=== PATIENT | female | born 1970 | race Hispanic/Latino ===

== ENCOUNTER 2018-02-16 12:24 | Inpatient (IN) | payer BC ==
--- NOTE | 2018-02-16 12:27 | ED PDOC ---
Arrival/HPI - General Chief Complaint: Altered Mental Status Time Seen by Provider: 02/16/18 12:26 Historian: Patient, EMS - History of Present Illness Narrative History of Present Illness (Text): 02/16/18 12:33 47 year old female, who is brought in to the emergency department via EMS from PMD's office s/p noting slurred speech, right hand/arm weakness and right sided face numbness at around 09:00 AM. pt states she awoke around 6-7am and was at her baseline mental status, no new changes and was at work when she began to feel unwell; pt states no fever/chills/sweats, no cp/sob/palpitations, no abd pain, no n/v, no urinary/bowel changes, no vision changes, no neck pain, no fall /trauma/sick contact, no optic fibre drawer is here for further eval pt's without other complaints. Patient is left handed dominant. PCP: DR TONY pt with hx of uterine Cancer - in remission pt is on medications for HTN, migraines Time/Duration: 4-6 hours Symptom Onset: Sudden Symptom Course: Unchanged Activities at Onset: Rest Context: Work, Other (pt arrived from [facility]) Past Medical History - Provider Review Nursing Documentation Reviewed: Yes - Travel History Have you recently traveled outside [place] w/in the past 3 mons?: No - Past History Past History: No Previous - Infectious Disease Hx of Infectious Diseases: None - Reproductive Menopause: No Currently : Unknown Family/Social History - Physician Review Nursing Documentation Reviewed: Yes Family/Social History: Unknown Family HX Smoking Status: Unknown If Ever Smoked Hx Alcohol Use: No Hx Substance Use: No Allergies/Home Meds Allergies/Adverse Reactions: Allergies Penicillins Allergy (Verified 02/16/18 13:02) ANAPHYLAXIS Home Medications: Home Meds Medication Instructions Recorded Confirmed Unobtainable 02/16/18 02/16/18 Review of Systems - Review of Systems Constitutional: Normal Eyes: Normal ENT: Normal Respiratory: Normal Cardiovascular: Normal Gastrointestinal: Normal Genitourinary Female: Normal Musculoskeletal: Normal Skin: Normal Neurological: Speech Changes, Other (right arm weakness, right facial numbness) . absent: Headache Endocrine: Normal Hemo/Lymphatic: Normal Psychiatric: Normal Physical Exam Vital Signs Reviewed: Yes Vital Signs Temp Pulse Resp BP Pulse Ox 02/16/18 13:00 98.1 F 78 18 135/80 100 02/16/18 12:45 80 16 136/85 98 02/16/18 12:28 83 18 132/81 100 Temperature: Afebrile Blood Pressure: Normal Pulse: Regular Respiratory Rate: Normal Appearance: Positive for: Well-Appearing, Non-Toxic, Uncomfortable, Other ( resting in bed, uncomfortable, cooperative, alert/awake, GCS = 15, oriented x 3 , follows command) Pain Distress: None Mental Status: Positive for: other (+ slurr speech, alert/awake, oriented x 3, uncomfortable) - Systems Exam Head: Present: Atraumatic, Normocephalic Pupils: Present: PERRL, Other (visual field intact b/l, no nystagmus, no photophobia, sclera anicteric) Extroacular Muscles: Present: EOMI Conjunctiva: Present: Normal Ears: Present: Normal Mouth: Present: Moist Mucous Membranes, Normal Teeth, Other (uvula/tongue are midline, no exudate/lesions, no drooling/stridor, no dysphonia, intact dentitions) Pharnyx: Present: Normal Nose (External): Present: Atraumatic Nose (Internal): Present: Normal Inspection Neck: Present: Normal Range of Motion, Trachea Midline, Other (no midline tenderness, no step off, no meningeal signs, no nuchal rigidity). No: Meningeal Signs, MIDLINE TENDERNESS Respiratory/Chest: Present: Clear to Auscultation, Good Air Exchange, Other ( CTA b/l, no w/r/r, no tachypenia). No: Respiratory Distress, Accessory Muscle Use Cardiovascular: Present: Regular Rate and Rhythm, Normal S1, S2. No: Murmurs Abdomen: Present: Normal Bowel Sounds, Other (well nourished female, no focal tenderness, no masses/rebound/guarding/rigidity, no fields's sign, no mcburney' s point tenderness) Back: Present: Normal Inspection. No: CVA Tenderness, Midline Tenderness Upper Extremity: Present: Normal Inspection, Normal ROM, NORMAL PULSES, Neurovascularly Intact, Other (right hand grasp: weak, +4/5; + slight prontor drift right arm; intact ROM; strength 5/5 left arm, neurovasc intact b/l, no gross deformities). No: Edema Lower Extremity: Present: Normal Inspection, NORMAL PULSES, Normal ROM, Neurovascularly Intact, Capillary Refill < 2 s, Other (strength 5/5 grossly intact in all limbs, neurovasc intact b/l, intact ROM). No: CALF TENDERNESS Neurological: Present: GCS=15, Other (faint right facial asymmetries noted right victor hugo-oral, + right facial sensation changes; + slurr speech, NIH stroke scale ~ 4-5). No: Speech Normal Skin: Present: Warm, Normal Color, Other (cap refill < 1sec, no ulcerations, no petechiae, no rashes). No: Rashes Psychiatric: Present: Alert Medical Decision Making ED Course and Treatment: 02/16/18 Impression: facial numbness, slurr speech, right hand weakness - r/o CVA Differential Diagnosis included but are not limited to: R/O CVA Plan: -- code stroke -- labs, iv, ct, xray -- Reassess and disposition Progress Notes: 02/16/2018 CODE STROKE CALLED AT 12:23 PM - immediately upon pt's ED arrival 02/16/18 13:10 Upon re-evaluation, patient shows persistent stroke symptoms. Left message to Dr. James regarding patient's status. 02/16/18 13:21 Dr. James evaluated patient at bed side and suggests patient is NOT a candidate for tPA due to time of onset of symptoms (9am) and apparent improvement of patient's conditions currently. Will administer 325 mg of aspirin and 75 mg of Plavix as per Dr. James's recommendation. Will admit patient for further observation. I spoke to pt's daughter over the phone, Jina, and states she is coming to the ED to see her mother; she confirm that her mother is on Propanolol, excedrine and another medication 02/16/18 13:33 paging PCP process controls technician, Dr Nelson, no reply, will continue to reach out 02/16/18 14:[address] Nelson who agrees with patient to be admitted and would like to consult ICU for possible placement in the ICU for stroke like symptoms. 02/16/18 14:[address] Duarte who is made aware and agrees to evaluate patient at bedside. 02/16/18 14:55 repeat bedside neurologic evaluation indicates improving speech and increasing strength to right hand gripe, pt states her speech seems to be slightly easier as well, pt's symptoms seems to be improving ICU contacted, will see patient, states if negative MRI, pt can be downgraded to tele placement instead of ICU placement pt/family are made aware of pt's medical results agrees with admission Re-evaluation Time: 13:20 Reassessment Condition: Improving,but remains with symptoms - Critical Care Critical Care Minutes: 45 minutes Critical Care Time: Excluding Proc Time Narrative Critical Care (Text): 02/16/18 13:45 critical care time: 45min, excluding procedure time, excluding time teaching residents/students/mid-level providers; including initial eval/diagnosis, diagnostic interpretation, re-eval, consultations, final disposition - Lab Interpretations Lab Results: 02/16/18 12:52 02/16/18 12:52 Lab Results 02/16/18 12:52: Blood Type A POSITIVE, Antibody Screen Negative, BBK History Checked No verified bt 02/16/18 12:52: Sodium 138, Potassium 3.7, Chloride 102, Carbon Dioxide 21, Anion Gap 18, BUN 12, Creatinine 0.8, Est GFR ( Amer) > 60, Est GFR (Non- Af Amer) > 60, Random Glucose 91, Calcium 9.2, Total Bilirubin 0.3, AST 33, ALT 60 H, Alkaline Phosphatase 157 H, Troponin I < 0.01, NT-Pro-B Natriuret Pep 47.1 , Total Protein 6.7, Albumin 4.2, Globulin 2.5, Albumin/Globulin Ratio 1.7, Triglycerides 160, Cholesterol 260 H, LDL Cholesterol Direct 168 H, HDL Cholesterol 48 02/16/18 12:52: PT 11.9, INR 1.03, APTT 28.5 02/16/18 12:52: WBC 8.5, RBC 4.73, Hgb 13.3, Hct 40.0, MCV 84.6, MCH 28.1, MCHC 33.3, RDW 13.9, Plt Count 328, MPV 9.6, Gran % 54.3, Lymph % (Auto) 36.1 H, [place] % (Auto) 5.5, Eos % (Auto) 3.4, Baso % (Auto) 0.7, Gran # 4.59, Lymph # ( Auto) 3.1, [place] # (Auto) 0.5, Eos # (Auto) 0.3, Baso # (Auto) 0.06 I have reviewed the lab results: Yes (elevated CHOL) Interpretation: Abnormal lab values - RAD Interpretation Narrative RAD Interpretations (Text): 02/16/18 13:47 CTA HEAD AND NECK WITH CONTRAST FINDINGS: HEAD: Right: The intracranial internal carotid artery, and anterior and middle cerebral arteries are widely patent. There is early bifurcation of the M1 segment. Left: The intracranial internal carotid artery, and anterior and middle cerebral arteries are widely patent. The A1 segment is hypoplastic, an anatomic variant. Posterior circulation: The visualized intracranial vertebral arteries, basilar artery and posterior cerebral arteries are widely patent. Ther is no endoluminal filling defect to suggest thrombus. There is no intracranial saccular aneurysm. There is no abnormal enhancement on the postcontrast CT. NECK: There is a four vessel aortic arch with the left vertebral artery arising from the aortic arch. There is no stenosis at the origins of the great vessels at the level of the aortic arch. Right Carotid: On the right, the common carotid, internal carotid and external carotid arteries are widely patent. There is no hemodynamically significant stenosis in the internal carotid artery by NASCET criteria. Left Carotid: On the left, the common carotid, internal carotid and external carotid arteries are widely patent.There is no hemodynamically significant stenosis in the internal carotid artery by NASCET criteria. The vertebral arteries are widely patent. The left vertebral artery is hypoplastic, an anatomic variant. The visualized soft tissues of the neck are normal. The visualized brain and cervical spine are within normal limits. The lung apices are clear. There is a multinodular thyroid gland. IMPRESSION: 1. No evidence of endoluminal thrombus, definite significant stenosis or occlusion. 2. No evidence of hemodynamically significant stenosis in the internal carotid arteries by NASCET criteria P 02/16/18 13:48 CT HEAD WITHOUT CONTRAST. FINDINGS: HEMORRHAGE:No intracranial hemorrhage. BRAIN:Nix-white matter differentiation is preserved. There is no mass, mass effect or abnormal extra-axial collection. There is no territorial infarction. VENTRICLES:The ventricles are normal in size, shape and configuration. CALVARIUM:The skull base and calvarium are normal. PARANASAL SINUSES:There is mucosal thickening and aerosolized secretions in the left posterior ethmoid air cells. The remaining included paranasal sinuses are predominantly clear. MASTOID AIR CELLS:Predominantly clear. OTHER FINDINGS:None. IMPRESSION:No acute intracranial abnormality. If there is a persistent focal neurologic deficit and an ongoing clinical concern for acute infarction, an MRI of the brain without intravenous contrast would be a more sensitive modality for evaluation of hyperacute/acute ischemic infarction. Important findings were discussed with Dr. Juan Cisneros in the ER on 02/16/2018 at 12:45 p.m. Chest X-ray: COMPARISON: 12/26/2013 FINDINGS: LUNGS:No active pulmonary disease. PLEURA:No significant pleural effusion identified, no pneumothorax apparent. CARDIOVASCULAR:Normal. OSSEOUS STRUCTURES:No significant abnormalities. VISUALIZED UPPER ABDOMEN:Normal. OTHER FINDINGS:None. IMPRESSION: No active disease. No significant interval change compared to the prior examination(s). 02/16/18 15:02 This report is currently processing and HAS NOT BEEN OFFICIALLY SIGNED BY THE PHYSICIAN - ESTIMATED TIME OF APPROVAL IS 02/16/2018 15:05. PROCEDURE: MRI BRAIN WITHOUT CONTRAST HISTORY: Code Stroke COMPARISON: None. TECHNIQUE: Multiplanar, multisequence MR images of the brain were obtained without intravenous contrast enhancement. FINDINGS: HEMORRHAGE: None DWI: No evidence of an acute or early subacute infarction. BRAIN PARENCHYMA: There is a solitary T2/FLAIR hyperintense focus in the left parietal subcortical white matter. There is no mass, mass effect or abnormal extra- axial fluid collection. The midline sagittal structures are normal. VENTRICLES: The ventricles are normal in size, shape and configuration. CRANIUM: There is normal bone marrow signal pattern. ORBITS: Grossly unremarkable. PARANASAL SINUSES/MASTOIDS: There is mild mucosal thickening in the right posterior ethmoid air cells. The remaining included paranasal sinuses are predominantly clear. VASCULAR SYSTEM: There are normal signal voids in the larger intracranial arteries. OTHER FINDINGS: None. IMPRESSION: No acute intracranial abnormality. Specifically, no evidence for acute infarction or demyelination. Solitary focal left parietal subcortical white matter abnormalities strictly nonspecific and could represent gliosis, migraine headache effect or early chronic microangiopathic change. Radiology Orders: 02/16/18 12:28 CTA HEAD/NECK CODE STROKE [CT] Stat HEAD W/O (CODE STROKE) [CT] Stat CHEST PORTABLE [RAD] Stat 02/16/18 13:32 BRAIN WITHOUT CONTRAST [MRI] Stat Food Clerk: Radiologist - EKG Interpretation EKG Interpretation (Text): 02/16/18 13:49 NSR at 80 bpm, RAD, no ectopy, non-specific T wave abnl, no st changes, ABNL EKG ; no old ekg to compare with Interpreted by ED Physician: Yes Type: 12 lead EKG Comparison: No previous EKG avail. - Medication Orders Current Medication Orders: Sodium Chloride (Sodium Chloride 0.9%) 1,000 mls @ 100 mls/hr IV .Q10H BRENDA Last Admin: 02/16/18 13:13 Dose: 100 mls/hr eMAR Start Stop Document 02/16/18 13:13 EWO (Rec: 02/16/18 13:13 EWO [id number]) Intravenous Solution Start Date 02/16/18 Start Time 13:13 Discontinued Medications Aspirin (Aspirin Supp) 300 mg RC STAT STA Stop: 02/16/18 13:46 Clopidogrel Bisulfate (Plavix) 75 mg PO STAT STA Stop: 02/16/18 13:27 NIHSS Stroke Scale 3 - Date/Time Evaluation Performed Date Performed: 02/16/18 Time Performed: 12:23 When Was NIHSS Performed: Code Stroke - How Severe is the Stroke Level of Consciousness: 0=Alert LOC to Questions: 0=Both comments correct LOC to commands: 0=Obeys both correctly Best Gaze: 0=Normal Visual: 0=No visual loss Facial: 1=Minor asymmetry Motor Arm - Left: 0=No drift Motor Arm - Right: 1=Drift noted before 10 sec Motor Leg - Left: 0=No drift Motor Leg - Right: 0=No drift Limb Ataxia: 0=Absent Sensory: 0=Normal Best Language: 2=Severe aphasia Dysarthia: 0=Normal articulation Extinction & Inattention (Neglect): 0=Normal, no object Score: 4 Severity Of Stroke: 1-4 = Minor Stroke - Scribe Statement The provider has reviewed the documentation as recorded by the José Ortez Provider Scribe Attestation: All medical record entries made by the José were at my direction and personally dictated by me. I have reviewed the chart and agree that the record accurately reflects my personal performance of the history, physical exam, medical decision making, and the department course for this patient. I have also personally directed, reviewed, and agree with the discharge instructions and disposition. Disposition/Present on Arrival - Present on Arrival Any Indicators Present on Arrival: No History of DVT/PE: No History of Uncontrolled Diabetes: No Urinary Catheter: No History of Decub. Ulcer: No History Surgical Site Infection Following: None - Disposition Have Diagnosis and Disposition been Completed?: Yes Diagnosis: TIA (transient ischemic attack), Slurred speech, Arm weakness Disposition: HOSPITALIZED Disposition Time: 14:30 Patient Plan: Admission, Telemetry Patient Problems: Current Active Problems Problem Status Onset Arm weakness Acute Slurred speech Acute TIA (transient ischemic attack) Acute Condition: STABLE Print Language: GAMBIAN Forms: [employer] (Divehi)
[2018-02-16] MEDS ORDERED: Iohexol 350 MG/100 ML VIAL ONE (12:37)
--- NOTE | 2018-02-16 12:51 | CT ---
PROCEDURE: CT HEAD WITHOUT CONTRAST. HISTORY: Code Stroke COMPARISON: None available. TECHNIQUE: Axial computed tomography images were obtained through the head/brain without intravenous contrast. Radiation dose: Total exam DLP = 797.46 mGy-cm. This CT exam was performed using one or more of the following dose reduction techniques: Automated exposure control, adjustment of the mA and/or kV according to patient size, and/or use of iterative reconstruction technique. FINDINGS: HEMORRHAGE: No intracranial hemorrhage. BRAIN: Nix-white matter differentiation is preserved. There is no mass, mass effect or abnormal extra-axial collection. There is no territorial infarction. VENTRICLES: The ventricles are normal in size, shape and configuration. CALVARIUM: The skull base and calvarium are normal. PARANASAL SINUSES: There is mucosal thickening and aerosolized secretions in the left posterior ethmoid air cells. The remaining included paranasal sinuses are predominantly clear. MASTOID AIR CELLS: Predominantly clear. OTHER FINDINGS: None. IMPRESSION: No acute intracranial abnormality. If there is a persistent focal neurologic deficit and an ongoing clinical concern for acute infarction, an MRI of the brain without intravenous contrast would be a more sensitive modality for evaluation of hyperacute/acute ischemic infarction. Important findings were discussed with Dr. Juan Cisneros in the ER on 02/16/2018 at 12:45 p.m.
--- NOTE | 2018-02-16 13:07 | CT ---
PROCEDURE: CTA HEAD AND NECK WITH CONTRAST HISTORY: slurr speech, right facial weak, right arm weak COMPARISON: None available. TECHNIQUE: Initial noncontrast head CT was performed. Subsequently, CT angiogram of the head and neck were performed after the intravenous administration of 80 mL of Omnipaque 350. Contiguous 1.5mm thick images were obtained in the axial plane of the neck. 2-D coronal and sagittal MPR images were obtained. Imaging postprocessing was performed with 3-D images also obtained. A delayed contrast head CT was also obtained. This CT exam was performed using one or more of the following dose reduction techniques: Automated exposure control, adjustment of the mA and/or kV according to patient size, and/or use of iterative reconstruction technique. Contrast dose: 100 mL Omnipaque 350 Radiation dose: Total exam DLP = 415.49 mGy-cm. FINDINGS: HEAD: Right: The intracranial internal carotid artery, and anterior and middle cerebral arteries are widely patent. There is early bifurcation of the M1 segment. Left: The intracranial internal carotid artery, and anterior and middle cerebral arteries are widely patent. The A1 segment is hypoplastic, an anatomic variant. Posterior circulation: The visualized intracranial vertebral arteries, basilar artery and posterior cerebral arteries are widely patent. Ther is no endoluminal filling defect to suggest thrombus. There is no intracranial saccular aneurysm. There is no abnormal enhancement on the postcontrast CT. NECK: There is a four vessel aortic arch with the left vertebral artery arising from the aortic arch. There is no stenosis at the origins of the great vessels at the level of the aortic arch. Right Carotid: On the right, the common carotid, internal carotid and external carotid arteries are widely patent. There is no hemodynamically significant stenosis in the internal carotid artery by NASCET criteria. Left Carotid: On the left, the common carotid, internal carotid and external carotid arteries are widely patent. There is no hemodynamically significant stenosis in the internal carotid artery by NASCET criteria. The vertebral arteries are widely patent. The left vertebral artery is hypoplastic, an anatomic variant. The visualized soft tissues of the neck are normal. The visualized brain and cervical spine are within normal limits. The lung apices are clear. There is a multinodular thyroid gland. IMPRESSION: 1. No evidence of endoluminal thrombus, definite significant stenosis or occlusion. 2. No evidence of hemodynamically significant stenosis in the internal carotid arteries by NASCET criteria P
[2018-02-16 13:12] LABS: BASO # 0.06 K/mm3 (0.0-2.0); BASO % 0.7 % (0.0-3.0); EOS # 0.3 (0.0-0.7); EOS % 3.4 % (1.5-5.0); GRAN # 4.59 (1.4-6.5); GRAN % 54.3 % (50.0-68.0); HEMOGLOBIN 13.3 g/dL (12.0-16.0); LYMPH # 3.1 (1.2-3.4); LYMPH % 36.1 % (22.0-35.0); MEAN CELL VOLUME 84.6 fl (80.0-105.0); MEAN CORPUSCULAR HEMOGLOBIN 28.1 pg (25.0-35.0); MEAN CORPUSCULAR HGB CONC 33.3 g/dl (31.0-37.0); MEAN PLATELET VOLUME 9.6 fl (7.0-11.0); MONO # 0.5 (0.1-0.6); MONO % 5.5 % (1.0-6.0); RBC 4.73 10^6/uL (3.5-6.1); RED CELL DISTRIBUTION WIDTH 13.9 % (11.5-14.5); WHITE BLOOD COUNT 8.5 10^3/ul (4.5-11.0)
[2018-02-16] MEDS: Sodium Chloride 0.9% 1,000 ML IV SCH ×2 (13:13→19:01)
[2018-02-16 13:22] LABS: ALB/GLOB RATIO 1.7 (1.1-1.8); ALBUMIN 4.2 g/dL (3.0-4.8); ALT/SGPT 60 U/L (7-56); AST/SGOT 33 U/L (14-36); BLOOD UREA NITROGEN 12 mg/dL (7-21); CALCIUM 9.2 mg/dL (8.4-10.5); GFR AFRICAN-AMERICAN > 60; GFR NON-AFRICAN AMERICAN > 60; HDL CHOLESTEROL 48 mg/dL (29-60)
[2018-02-16 13:25] LABS: INR 1.03 (0.93-1.08); PARTIAL THROMBOPLASTIN TIME 28.5 Seconds (25.1-36.5); PROTHROMBIN TIME 11.9 SECONDS (9.4-12.5)
[2018-02-16 13:33] LABS: LDL CHOLESTEROL 168 mg/dL (0-129)
--- NOTE | 2018-02-16 13:33 | RAD ---
HISTORY: Code Stroke COMPARISON: 12/26/2013 FINDINGS: LUNGS: No active pulmonary disease. PLEURA: No significant pleural effusion identified, no pneumothorax apparent. CARDIOVASCULAR: Normal. OSSEOUS STRUCTURES: No significant abnormalities. VISUALIZED UPPER ABDOMEN: Normal. OTHER FINDINGS: None. IMPRESSION: No active disease. No significant interval change compared to the prior examination(s).
[2018-02-16 13:36] LABS: B-TYPE NATRIURETIC PEPTIDE 47.1 pg/mL (0-450); TROPONIN I < 0.01 ng/mL
--- NOTE | 2018-02-16 14:47 | CP.PCM.CON ---
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 She says that this started acutely at 930 am , with no prior spells reported. She denies nausea, vomiting, headache, aphasia or blurriness of vision. She came in as a code stroke and is now being evaluated. PMH/PSH: none reported Fh/SH: no smoking, no tobacco. All: nkda. On exam: AAox3. PERRL. EOMI. Cn 2-12 normal. No facial asymmetry. Speech fluent, no aphasia. motor: right sided weakness at 4/5. left motor is 5/5 right le/5, left leg is 5/5 gait: hemiplegic with right leg weakness. +2 dtr ul and ll bl. toes downgoing no clonus. Past Patient History - Past Social History Smoking Status: Unknown - CARDIAC Hx Hypertension: Yes - NEUROLOGICAL Hx Migraine: Yes - PSYCHIATRIC Hx Substance Use: No - SURGICAL HISTORY Hx Surgeries: No Meds Allergies/Adverse Reactions: Allergies Allergy/AdvReac Type Severity Reaction Status Date / Time Penicillins Allergy ANAPHYLAXIS Verified 02/16/18 13:02 - Medications Medications: Current Medications Sodium Chloride (Sodium Chloride 0.9%) 1,000 mls @ 100 mls/hr IV .Q10H BRENDA Last Admin: 02/16/18 13:13 Dose: 100 mls/hr Results - Vital Signs Recent Vital Signs: Last Vital Signs Temp 98.1 F 02/16/18 13:00 Pulse 78 02/16/18 13:00 Resp 18 02/16/18 13:00 BP 135/80 02/16/18 13:00 Pulse Ox 100 02/16/18 13:00 - Labs Result Diagrams: 02/16/18 12:52 02/16/18 12:52 Labs: Laboratory Results - last 24 hr 02/16/18 02/16/18 02/16/18 12:52 12:52 12:52 WBC 8.5 RBC 4.73 Hgb 13.3 Hct 40.0 MCV 84.6 MCH 28.1 MCHC 33.3 RDW 13.9 Plt Count 328 MPV 9.6 Gran % 54.3 Lymph % (Auto) 36.[address] [place] % (Auto) 5.5 Eos % (Auto) 3.4 Baso % (Auto) 0.7 Gran # 4.59 Lymph # (Auto) 3.1 [place] # (Auto) 0.5 Eos # (Auto) 0.3 Baso # (Auto) 0.06 PT 11.9 INR 1.03 APTT 28.5 Sodium 138 Potassium 3.7 Chloride 102 Carbon Dioxide 21 Anion Gap 18 BUN 12 Creatinine 0.8 Est GFR ( Amer) > 60 Est GFR (Non-Af Amer) > 60 Random Glucose 91 Calcium 9.2 Total Bilirubin 0.3 AST 33 ALT 60 H Alkaline Phosphatase 157 H Troponin I < 0.01 NT-Pro-B Natriuret Pep 47.1 Total Protein 6.7 Albumin 4.2 Globulin 2.5 Albumin/Globulin Ratio 1.7 Triglycerides 160 Cholesterol 260 H LDL Cholesterol Direct 168 H HDL Cholesterol 48 Blood Type Antibody Screen BBK History Checked 02/16/18 12:52 WBC RBC Hgb Hct MCV MCH MCHC RDW Plt Count MPV Gran % Lymph % (Auto) [place] % (Auto) Eos % (Auto) Baso % (Auto) Gran # Lymph # (Auto) [place] # (Auto) Eos # (Auto) Baso # (Auto) PT INR APTT Sodium Potassium Chloride Carbon Dioxide Anion Gap BUN Creatinine Est GFR ( Amer) Est GFR (Non-Af Amer) Random Glucose Calcium Total Bilirubin AST ALT Alkaline Phosphatase Troponin I NT-Pro-B Natriuret Pep Total Protein Albumin Globulin Albumin/Globulin Ratio Triglycerides Cholesterol LDL Cholesterol Direct HDL Cholesterol Blood Type A POSITIVE Antibody Screen Negative BBK History Checked No verified bt - Imaging and Cardiology CT scan - head Status: Image reviewed by me, Report reviewed by me (ct head normal. ) Assessment & Plan - Assessment and Plan (Free Text) Assessment: 47 yr old woman who may have an acute stroke, involving the right internal capsule, ischemic. It may also be functional in nature, but we will obtain MRI brain. Plan; 1. MRI Brain without kamran 2. aspirin and plavix. 3. IF mri is normal, would call psychiatry consult and also pursue tia workup. 4. echo 5. physical therapy. thank you dr. glen md, dpn
--- NOTE | 2018-02-16 15:00 | MRI ---
PROCEDURE: MRI BRAIN WITHOUT CONTRAST HISTORY: Code Stroke COMPARISON: None. TECHNIQUE: Multiplanar, multisequence MR images of the brain were obtained without intravenous contrast enhancement. FINDINGS: HEMORRHAGE: None DWI: No evidence of an acute or early subacute infarction. BRAIN PARENCHYMA: There is a solitary T2/FLAIR hyperintense focus in the left parietal subcortical white matter. There is no mass, mass effect or abnormal extra-axial fluid collection. The midline sagittal structures are normal. VENTRICLES: The ventricles are normal in size, shape and configuration. CRANIUM: There is normal bone marrow signal pattern. ORBITS: Grossly unremarkable. PARANASAL SINUSES/MASTOIDS: There is mild mucosal thickening in the right posterior ethmoid air cells. The remaining included paranasal sinuses are predominantly clear. VASCULAR SYSTEM: There are normal signal voids in the larger intracranial arteries. OTHER FINDINGS: None. IMPRESSION: No acute intracranial abnormality. Specifically, no evidence for acute infarction or demyelination. Solitary focal left parietal subcortical white matter abnormalities strictly nonspecific and could represent gliosis, migraine headache effect or early chronic microangiopathic change.
--- NOTE | 2018-02-16 15:30 | CP.PCM.CON ---
<Azam Valladares - Last Filed: 02/16/18 15:27> History of Present Illness - History of Present Illness History of Present Illness: Consult note for ICU Patient is a 47 year old female with a past history of migraines medicated with propofol who presents to the ED with complaints of right sided facial and upper extremity numbness. 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 Suddenly patient noted her right side of the her face was numb which she likened to the numbness associated with local anesthesia with dental procedures. Patient states this lasted for a few hours. Then patient states the numbness in her right arm also started. Denies any concurrent weakness or tingling with the right side of her face and right upper extremity. She states that currently she feels better than she earlier in the day. Patient denies fevers, chills, nausea, vomiting, diarrhea, migraine, cough , body aches, recent travel, sick contacts, vision changes. Patient during physical exam was demonstrating dysarthria however upon leaving patient asked a question and did not demonstrate dysarthria. Imaging CT Head: no acute intracranial abnormality; no territorial infarction of intracranial hemorrhage. CTA head/neck: intracranial internal carotid artery, and anterior and middle cerebral arteries widely patent. No intracranial saccular aneurysm. Patent left and right carotids. No evidence of endoluminal thrombus, definite significant stenosis, orrr occlusion. No evidence of hemodynamically significant stenosis in the internal carotid arteries. MRI:no acute intracranial abnormality. No evidence for acute infarction or demyelination. Solitary focal left parietal subcortical white matter abnormalities striclty nonspecific and could represent gliosis, migraine headache effect or early microangiopathic change. Review of Systems - Constitutional Constitutional: absent: Chills, Fever - EENT Eyes: absent: Blurred Vision, Change in Vision - Cardiovascular Cardiovascular: absent: Chest Pain, Dyspnea - Respiratory Respiratory: absent: Cough, Dyspnea - Gastrointestinal Gastrointestinal: absent: Diarrhea, Nausea, Vomiting - Genitourinary Genitourinary: absent: Dysuria - Musculoskeletal Musculoskeletal: absent: Arthralgias, Myalgias - Neurological Neurological: absent: Burning Sensations, Confusion, Dizziness, Numbness, Focal Weakness, Headaches, Paresthesias - Psychiatric Psychiatric: absent: Anxiety - Endocrine Endocrine: absent: Fatigue Past Patient History - Infectious Disease Hx of Infectious Diseases: None - Past Social History Smoking Status: Unknown If Ever Smoked - CARDIAC Hx Hypertension: Yes - NEUROLOGICAL Hx Migraine: Yes - PSYCHIATRIC Hx Substance Use: No - SURGICAL HISTORY Hx Surgeries: No Meds Allergies/Adverse Reactions: Allergies Allergy/AdvReac Type Severity Reaction Status Date / Time Penicillins Allergy ANAPHYLAXIS Verified 02/16/18 13:02 - Medications Medications: Current Medications Sodium Chloride (Sodium Chloride 0.9%) 1,000 mls @ 100 mls/hr IV .Q10H BRENDA Last Admin: 02/16/18 13:13 Dose: 100 mls/hr Physical Exam - Head Exam Head Exam: ATRAUMATIC, NORMAL INSPECTION, NORMOCEPHALIC - Eye Exam Eye Exam: EOMI, Normal appearance - ENT Exam ENT Exam: Mucous Membranes Moist, Normal Exam - Respiratory Exam Respiratory Exam: Clear to Auscultation Bilateral, NORMAL BREATHING PATTERN. absent: Rales, Rhonchi, Wheezes - Cardiovascular Exam Cardiovascular Exam: REGULAR RHYTHM, +S1, +S2 - GI/Abdominal Exam GI & Abdominal Exam: Normal Bowel Sounds. absent: Distended, Mass - Back Exam Back exam: NORMAL INSPECTION - Neurological Exam Neurological exam: Alert, CN II-XII Intact, Oriented x3 - Expanded Neurological Exam Expanded Patient oriented to: person, place, time Speech: Slurred Speech Cranial nerves: EOM's Intact: Normal, Facial Palsey w/Forehead Movement: Normal , Facial Palsey w/o Forehead Movement: Normal, Facial Sensation: Normal, Tongue Deviation: Normal Cerebellar Function: Finger to Nose: Normal Sensory exam: Lower Extremity 2 Point Discrimination: Normal, Lower Extremity Pin Prick: Normal, Upper Extremity Light Touch: Normal, Upper Extremity Pin Prick: Normal Neuro motor strength exam: Left Upper Extremity: 3, Right Upper Extremity: 3, Left Lower Extremity: 3, Right Lower Extremity: 3 - Psychiatric Exam Psychiatric exam: Normal Affect, Normal Mood - Skin Skin Exam: Intact, Normal Color, Warm Results - Vital Signs Recent Vital Signs: Last Vital Signs Temp 98.1 F 02/16/18 13:00 Pulse 78 02/16/18 13:00 Resp 18 02/16/18 13:00 BP 135/80 02/16/18 13:00 Pulse Ox 100 02/16/18 13:00 - Labs Result Diagrams: 02/16/18 12:52 02/16/18 12:52 Labs: Laboratory Results - last 24 hr 02/16/18 02/16/18 02/16/18 12:52 12:52 12:52 WBC 8.5 RBC 4.73 Hgb 13.3 Hct 40.0 MCV 84.6 MCH 28.1 MCHC 33.3 RDW 13.9 Plt Count 328 MPV 9.6 Gran % 54.3 Lymph % (Auto) 36.1 H [place] % (Auto) 5.5 Eos % (Auto) 3.4 Baso % (Auto) 0.7 Gran # 4.59 Lymph # (Auto) 3.1 [place] # (Auto) 0.5 Eos # (Auto) 0.3 Baso # (Auto) 0.06 PT 11.9 INR 1.03 APTT 28.5 Sodium 138 Potassium 3.7 Chloride 102 Carbon Dioxide 21 Anion Gap 18 BUN 12 Creatinine 0.8 Est GFR ( Amer) > 60 Est GFR (Non-Af Amer) > 60 Random Glucose 91 Calcium 9.2 Total Bilirubin 0.3 AST 33 ALT 60 H Alkaline Phosphatase 157 H Troponin I < 0.01 NT-Pro-B Natriuret Pep 47.1 Total Protein 6.7 Albumin 4.2 Globulin 2.5 Albumin/Globulin Ratio 1.7 Triglycerides 160 Cholesterol 260 H LDL Cholesterol Direct 168 H HDL Cholesterol 48 Blood Type Antibody Screen BBK History Checked 02/16/18 12:52 WBC RBC Hgb Hct MCV MCH MCHC RDW Plt Count MPV Gran % Lymph % (Auto) [place] % (Auto) Eos % (Auto) Baso % (Auto) Gran # Lymph # (Auto) [place] # (Auto) Eos # (Auto) Baso # (Auto) PT INR APTT Sodium Potassium Chloride Carbon Dioxide Anion Gap BUN Creatinine Est GFR ( Amer) Est GFR (Non-Af Amer) Random Glucose Calcium Total Bilirubin AST ALT Alkaline Phosphatase Troponin I NT-Pro-B Natriuret Pep Total Protein Albumin Globulin Albumin/Globulin Ratio Triglycerides Cholesterol LDL Cholesterol Direct HDL Cholesterol Blood Type A POSITIVE Antibody Screen Negative BBK History Checked No verified bt Assessment & Plan - Assessment and Plan (Free Text) Assessment: 47 F with PMHx of migraines presenting with numbness in right side of face and right upper extremity which has now resolved. Plan: Assessment and Plan -AAO x3 and hemodynamically stable -Neurology consulted; recommends telemetry monitoring -CT head, CTA head and neck, MRI brain findings are not not consistent with physical exam findings -Psychiatry consult recommended <Shayne Bender - Last Filed: 02/16/18 16:21> Meds - Medications Medications: Current Medications Sodium Chloride (Sodium Chloride 0.9%) 1,000 mls @ 100 mls/hr IV .Q10H BRENDA Last Admin: 02/16/18 13:13 Dose: 100 mls/hr Results - Vital Signs Recent Vital Signs: Last Vital Signs Temp 98.1 F 02/16/18 13:00 Pulse 78 02/16/18 13:00 Resp 18 02/16/18 13:00 BP 135/80 02/16/18 13:00 Pulse Ox 100 02/16/18 13:00 - Labs Result Diagrams: 02/16/18 12:52 02/16/18 12:52 Assessment & Plan - Assessment and Plan (Free Text) Plan: Patient seen and examined, agree with residents note with following additions/ exceptions: Patient is 47yo female with PMhx of BZD abuse, migraines presents with acute onset right facial numbness, R sided weakness, which has mostly resolved. CT Brain, CT Angio, MRI Brain negative for acute stroke. Currently AAOx3, NAD, comfortable, NAD, minimal R sided weakness, NOT consistent with radiographic imaging. Recommend: Neuro follow up, Lipid Panel, TSH, HgbA1C, ECHO, tele monitoring.
--- NOTE | 2018-02-16 19:28 | CARD ---
APPROVED REPORT EKG Measurement Heart [id number] <Conclusion> Normal sinus rhythm Rightward axis Nonspecific T wave abnormality Prolonged QT Abnormal ECG
[2018-02-17 00:42] VITALS: BMI 31.0
--- NOTE | 2018-02-17 03:13 | HP ---
DATE OF EXAM: 02/16/2018 HISTORY OF PRESENT ILLNESS: This 47-year-old female was examined at her bedside and this case was reviewed in detail with Dr. Juan Cisneros from the ER, Dr. James from Neurology and Dr. Shayne Bender, brand activation manager. The patient presented to [facility] ER, complaining of right facial and upper extremity numbness. At the time of her presentation she reportedly had slurred speech which was not present when I saw her. Past medical history is significant for history of migraine headache, and patient prior to my evaluation, was seen by emergency room physician and Neurology for concerns of acute stroke for which a code stroke protocol was called. 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 She experienced right-sided face numbness and also reported slurred speech. When I examined this patient, she had neither. Also, she stated that earlier she had a weakness in her right upper extremity, and when examined by Neurology, she was having difficulty with right leg ambulation. Past medical history according to patient is significant for recurrent migraines and she denied any knowledge of hypertension, old stroke, transient ischemic attack, seizure syndrome or multiple sclerosis or neurological defects in her past. While in the emergency room, her CT of the head was reviewed, which showed no acute intracranial abnormality and no evidence of acute intracranial hemorrhage. A CTA of her head and neck was reviewed, which showed widely open and patent intracranial internal carotid arteries as well as anterior and middle cerebral artery patency. There was no evidence of intracranial aneurysm. Both left and right carotids were patent. No thrombus was noted. There was no evidence of any carotid stenosis. MRI of her brain was reviewed, which showed no intracranial abnormality, no evidence of acute infarction, no evidence of demyelination, and there was an area of focal left parietal subcortical white matter finding consistent with possible migraine headache effect. REVIEW OF SYSTEMS: CONSTITUTIONAL: Patient denied fever or chills. HEENT: Head review, denied any active headache and denied any blurred vision. Ear review, denied hearing loss. Throat review, denied swallowing difficulty. NECK: Denied any stiffness. CARDIAC: No chest pain, no shortness of breath, no palpitation. LUNGS: No cough. No hemoptysis. GASTROINTESTINAL: No hematemesis, no melena. GENITOURINARY: No dysuria. SKIN: No rash. VASCULAR: No claudication. PSYCHOLOGICAL: Denied any history of psychiatric issues. ENDOCRINOLOGIC: No knowledge of hypothyroidism or diabetes. Denied any knowledge of hyperlipidemia. NEUROLOGICAL; History of migraines. FAMILY HISTORY: Noncontributory. SOCIAL HISTORY: She states she is a nondrinker, nonsmoker, non-IV drug misuser. ALLERGIES: STATES SHE HAS A SENSITIVITY TO PENICILLIN, WHICH CAUSES A RASH, BUT DENIED ANY ANAPHYLAXIS. PHYSICAL EXAMINATION: GENERAL: Patient was in a normal sinus rhythm on the color television console monitor. VITAL SIGNS: Temperature 98.1, respirations 18, pulse 78, blood pressure 135/80. Pulse ox 100%. HEENT: Head: Normocephalic, atraumatic. Eyes: No icterus. Ears: Clear. Throat: Noninjected. NECK: Supple. HEART: Regular S1 and S2. No pathological rubs, murmurs or gallops. LUNGS: Clear. ABDOMEN: Soft. EXTREMITIES: No clubbing, no cyanosis, no edema. SKIN: Without rash. NEUROLOGICAL: Patient had fluent speech. She had mild right lower extremity weakness on motor exam. Right upper extremity motor exam was normal and she had facial symmetry on smile with no evidence of numbness or visual field defect. LABORATORY DATA: Sodium 138, K 3.7, chloride 102, bicarb 21, BUN 12, creatinine 0.8, random blood sugar 91. Hemoglobin A1c 5.6. AST 33, ALT 60, alk phos 157. Troponin less than 0.01. BNP 47. Cholesterol 260, LDL 168, triglycerides 160, HDL 48. PT/INR 1.03, PTT 28.5. White count 8,500, hemoglobin 13.3, hematocrit 40, platelets 328,000. EKG reportedly showed a normal sinus rhythm with nonspecific ST-T wave changes. Chest x-ray showed no active infiltrate, no effusion, no pneumothorax, no evidence of congestive heart failure. IMPRESSION: A 47-year-old female with history of migraine headache, who presented with complaints of numbness of her face, right upper extremity numbness, reported right lower extremity weakness with gait defects noted by Neurology on exam, now with fluent speech and no complaints of headache or visual field defect. PLAN: Will be to admit this patient to the cardiac unit. She will have a psychiatric evaluation as recommended by Neurology. She will be started on Lipitor for her hyperlipidemia. I have requested T4 thyroid level and an echo test with bubble study as recommended by Neurology. She will have a repeat comprehensive metabolic panel in the a.m. and I have ordered a hepatitis A, B and C serology for completeness sake. She will be followed by Neurology regarding further evaluation of all of the above. Patient was given Plavix, aspirin and is now on IV fluids as outlined. All of the above was discussed in detail with patient, nursing and co-consultants from Neurology, Intensive Care and emergency room. All questions were answered. Carin Nelson MD [facility]
[2018-02-17] MEDS: Sodium Chloride 0.9% 1,000 ML IV SCH ×3 (05:56→18:12)
[2018-02-17 08:19] LABS: ALB/GLOB RATIO 1.5 (1.1-1.8); ALBUMIN 3.6 g/dL (3.0-4.8); ALT/SGPT 56 U/L (7-56); AST/SGOT 31 U/L (14-36); BLOOD UREA NITROGEN 15 mg/dL (7-21); CALCIUM 8.3 mg/dL (8.4-10.5); GFR AFRICAN-AMERICAN > 60; GFR NON-AFRICAN AMERICAN > 60
[2018-02-17 09:05] LABS: ALB/GLOB RATIO 1.7 (1.1-1.8); ALBUMIN 3.9 g/dL (3.0-4.8); ALT/SGPT 60 U/L (7-56); AST/SGOT 33 U/L (14-36); BLOOD UREA NITROGEN 15 mg/dL (7-21); CALCIUM 8.7 mg/dL (8.4-10.5); GFR AFRICAN-AMERICAN > 60; GFR NON-AFRICAN AMERICAN > 60
[2018-02-17] MEDS ORDERED: Potassium Chloride 20 mEq ER Tab PO ONE (11:59)
[2018-02-17 12:18] LABS: HEPATITIS A IGM NEGATIVE (NEGATIVE)
[2018-02-17 12:24] LABS: HEPATITIS B SURFACE AG Negative (NEGATIVE)
[2018-02-17 12:30] LABS: HEPATITIS C ANTIBODY NEGATIVE (NEGATIVE)
[2018-02-17 13:13] LABS: HEPATITIS B CORE AB NEGATIVE (NEGATIVE)
[2018-02-17 14:26] LABS: BARBITURATES, UR NEGATIVE (NEGATIVE); BENZODIAZEPINES, UR NEGATIVE (NEGATIVE); OPIATES, UR NEGATIVE (NEGATIVE); PHENCYCLIDINE, UR NEGATIVE (NEGATIVE)
--- NOTE | 2018-02-17 23:19 | CON ---
DATE: HISTORY OF PRESENT ILLNESS: Patient is a 47-year-old white female with no prior psychiatric history, who was admitted to Medicine due to complaints of numbness in the right side of her face and right upper extremity, which has presently resolved. Psychiatry consult was called because MRI brain findings are not consisting with physical exams findings. I reviewed the recent notes with patient at bedside. Patient has generally been calm on the unit and cooperative. Of note, patient was not aware that a psychiatric consultation was called for her and she was surprised, but agreeable to consultation. Patient is alert and oriented to month, year, locations, and current circumstances. She presents as a fairly reliable historian and her responses are consistent. Patient denies having any major psychiatric symptoms at this time. She is not overtly depressed or . Patient is forthcoming regarding her history and current symptoms. She reports that the major issue right now is her medical symptoms and reports that that is her priority. She is feeling fine, sleeping okay, denies any issues with her job or family at this time. She has been calm in the unit and thought process is coherent. Delusions were not elicited. Vital signs and labs were reviewed. RELEVANT PSYCHIATRIC MEDICATIONS: Patient is not on any relevant psychiatric medications at this time. PSYCHIATRIC HISTORY: Patient denies any prior psychiatric followup, psychiatric admissions, or suicide attempt. Patient denies any treatment with psychiatric medications. SOCIAL HISTORY: Patient was born and raised in [place], [place]. She is . She has one child who is 23 years old, lives by herself. 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 She denies any history of drug or alcohol use. IMPRESSION: Adjustment disorder with changes in mood and anxiety, rule out disorder. RECOMMENDATIONS: At this time, patient defers on any psychiatric management as she does not feel that she has any symptoms that needs to be managed with medications. I am respecting the patient's wishes at this time as she is not an acute danger to herself or others. She is not overtly delusional or disorganized and she does not have any hallucinations and her behavior has been in control. I did indicate that she can request my services if she changes her mind for any reason and that we can always refer her for psychiatric followup if she would like to pursue that type of treatment once she is medically cleared. At this time, Psychiatry will sign off from this patient. Please re-consult as necessary if there are any acute changes in patient's presentation. Please, for the future, apprise patients prior to requesting psychiatric consultation. Ty Denson MD : 02/17/2018 11:32:42
[2018-02-18] MEDS: Sodium Chloride 0.9% 1,000 ML IV SCH ×4 (03:40→10:53)
[2018-02-18] MEDS ORDERED: Magnesium Sulfate 2 GM in Sodium Chloride 0.9% 100 ML IVPB ONE (05:58)
[2018-02-18] MEDS ORDERED: Valproate 500 MG in Sodium Chloride 0.9% 100 ML IVPB SCH (06:00)
[2018-02-18] MEDS ORDERED: Valproate 500 MG in Sodium Chloride 0.9% 100 ML IVPB ONE (06:04)
--- NOTE | 2018-02-18 07:11 | CP.PCM.PN ---
Subjective - Date & Time of Evaluation Date of Evaluation: 02/18/18 Time of Evaluation: 07:07 - Subjective Subjective: Ms. Magaña was seen and examined at the bedside. She is alert, oriented in all spheres. She complains of severe headache in the left parietal area, non- radiating, described as pressure-like. She further claims of being photophobic, but not phonophobic. She denies any blurred vision, nausea, vomiting, lightheadedness, or weakness. She is able to follow all simple commands. MRI of the brain done showed no acute intracranial abnormality. There is no evidence of acute infarction or demyelination. There is a solitary focal left parietal subcortical white matter abnormalities strictly non specific and could represent gliosis, migraine headache effect or early chronic microangiopathic change. There was no untoward events overnight. Objective - Vital Signs/Intake and Output Vital Signs (last 24 hours): Temp Pulse Resp BP Pulse Ox 97.7 F 76 20 130/82 97 02/18/18 06:00 02/18/18 06:00 02/18/18 06:00 02/18/18 06:00 02/18/18 06:00 Intake and Output: 02/18/18 02/18/18 06:59 18:59 Intake Total 1900 Output Total 0 Balance 1900 - Medications Medications: Current Medications Acetaminophen (Tylenol 325mg Tab) 650 mg PO Q6H PRN PRN Reason: Fever >100.4 F or pain Last Admin: 02/17/18 16:48 Dose: 650 mg Aspirin (Ecotrin) 81 mg PO DAILY [facility] Atorvastatin Calcium (Lipitor) 20 mg PO DIN [facility] Last Admin: 02/17/18 16:47 Dose: 20 mg Sodium Chloride (Sodium Chloride 0.9%) 1,000 mls @ 150 mls/hr IV .Q6H40M [facility] Last Admin: 02/18/18 06:48 Dose: Not Given Magnesium Oxide (Mag-Ox) 400 mg PO BID [facility] - Labs Labs: 02/17/18 08:45 PT 11.9 SECONDS (9.4-12.5) 02/16/18 12:52 INR 1.03 (0.93-1.08) 02/16/18 12:52 APTT 28.5 Seconds (25.1-36.5) 04/20/18 12:52 - Constitutional Appears: No Acute Distress - Head Exam Head Exam: NORMAL INSPECTION - Neurological Exam Neurological Exam: Alert, Awake Neuro motor strength exam: Left Upper Extremity: 5, Right Upper Extremity: 5, Left Lower Extremity: 5, Right Lower Extremity: 5 Additional comments: She is alert, oriented, no weakness, able to follow simple commands. Sensation is intact. Assessment and Plan (1) Migraine Assessment & Plan: Case discussed with Dr. James, continue current medical regimen. Recommend Magnesium 2 gms IVPB for one dose, Decadron 10 mg IV for one dose, and depakote 500 mg IVPB for one dose. Magnesium 400 mg PO BID. Recommend to follow up with an outpatient neurologist foe her headache. Pending echocardiogram and TIA work - up. Status: Acute
--- NOTE | 2018-02-18 11:46 | PN ---
DATE: 02/17/2018 SUBJECTIVE: This 47-year-old female was examined on the cardiac unit and this case was reviewed in detail with her nurse, Tamara Sams, registered nurse. The patient was admitted with right-sided facial numbness, slurred speech that resolved, right upper and lower extremity weakness and gait imbalance. She is being followed by Neurology and there has been no evidence on her radiographic studies of any acute stroke. At present, on the cardiac catheterization technician, she is showing signs of normal sinus rhythm. She denies any headache, fever, chills, chest pain or shortness of breath. PHYSICAL EXAMINATION: VITAL SIGNS: She is in a normal sinus rhythm on the cardiac catheterization technician. Temperature 97.8, respirations 20, pulse 77, blood pressure 99/64. Pulse ox 98%. HEENT: Head normocephalic, atraumatic. Eyes: No icterus. Ears: Clear. Throat: Noninjected. NECK: Supple. HEART: Regular S1, S2. LUNGS: Clear. ABDOMEN: Soft. EXTREMITIES: No edema. SKIN: Without rash. NEUROLOGICAL: Intact. Fluent speech. No evidence of facial droop. No numbness reported. Motor strength intact. PSYCHOLOGICAL: Alert and oriented x3. VASCULAR: Legs warm to touch. SKIN: Without rash. LABORATORY DATA: White count 8500, hemoglobin 13.3, hematocrit 40, platelets 328,000. PT/INR 1.03, PTT 28.5. Sodium 140, K 3.5, chloride 109, bicarb 20, BUN 15, creatinine 0.7, random blood sugar 92. Bilirubin 0.3, AST 33, ALT 60, alk phos 148. Urine drug screen negative. Hepatitis A, B, C serology negative. IMPRESSION: A 47-year-old female admitted with right facial weakness, slurred speech resolved, complaints of right arm and leg numbness and gait disturbance. [place] by Neurology to be inconsistent with cerebrovascular accident and history of migraines and anxiety neurosis in her past. PLAN: The plan will be for this patient to proceed with TIA workup, nonetheless including echocardiography that has been outlined. Her x-rays were reviewed and CTA of the head and neck unremarkable and CT of head and MRI of brain unremarkable as well. The patient will be evaluated by Psychiatry as per Neurology request and all of the above was discussed in detail with nursing and the patient. The patient will remain on the cardiac arzola for workup as outlined. All questions were answered. Carin Nelson MD [place]
--- NOTE | 2018-02-18 16:11 | US ---
HISTORY: Elevated LFTs -rule out fatty liver. COMPARISON: None. TECHNIQUE: Sonographic evaluation of the right upper quadrant of the abdomen. FINDINGS: LIVER: Measures 13.8 cm in length. Increased echotexture of the liver parenchyma likely due to fatty infiltration however other infiltrative hepatocellular disease process not excluded. No obvious masses or gross intrahepatic bile duct dilatation seen on images presented. . GALLBLADDER: Cholecystectomy COMMON BILE DUCT: Common bile duct slightly dilated measuring approximately 7.5 mm likely due to post cholecystectomy state. No stones. No dilatation. PANCREAS: Unremarkable as visualized. No mass. No ductal dilatation. RIGHT KIDNEY: Measures 10.3 x 4.1 x 5.6 cm in length. Normal echogenicity. No calculus, mass, or hydronephrosis. AORTA: No aneurysmal dilatation. IVC: Unremarkable. OTHER FINDINGS: None . IMPRESSION: Cholecystectomy. Increased hepatic echotexture likely due to fatty infiltration however other infiltrative hepatocellular disease process not excluded. . Consider followup CT scan of the abdomen pelvis to confirm if further evaluation is required.
[2018-02-18] MEDS: Magnesium Oxide 400 mg Tab UD PO SCH ×2 (17:21→17:22)
[2018-02-19] MEDS: Sodium Chloride 0.9% 1,000 ML IV SCH ×2 (00:27→11:38)
[2018-02-19] MEDS: Magnesium Oxide 400 mg Tab UD PO SCH ×2 (09:52→18:08)
--- NOTE | 2018-02-19 11:07 | PN ---
DATE: 02/18/2018 SUBJECTIVE: This 47-year-old female was examined at her bedside. This case was reviewed in detail with herself, her nurse, Bao Garcia, registered nurse and neurologist, Dr. James. The patient was admitted with altered mental status, right facial weakness and numbness, slurred speech and right upper and lower extremity weakness. All of the symptoms have resolved. At present, the patient is alert, oriented and tolerating diet, medications and Puentes. OBJECTIVE: GENERAL: Alert and oriented x3 and without any dysarthria or facial asymmetry. VITAL SIGNS: On physical exam, she remains in a normal sinus rhythm on the satellite project site monitor. Temperature is 98.6, respirations 20, pulse 96, blood pressure 126/79 with a pulse ox of 97% on room air. playground monitor shows normal sinus rhythm. HEENT: Head is normocephalic, atraumatic. Eyes, no icterus. Ears, clear. Throat, noninjected. NECK: Supple. HEART: Regular S1, S2. LUNGS: Clear. ABDOMEN: Soft. EXTREMITIES: No edema. SKIN: Without rash. NEUROLOGIC: Intact. PSYCHOLOGIC: Alert. VASCULAR: Legs are warm to touch. DATA: White count 8500, hemoglobin 13.3, hematocrit 40, platelets are 328,000. PT/INR 1.03, PTT 28.5. Sodium 140, potassium 3.9, chloride 109, bicarbonate 20, BUN 15, creatinine 0.7, random blood sugar 99. Bilirubin 0.3, AST 33, ALT 60 and alkaline phosphatase 148. Urine drug screen was negative. Hepatitis ABC serology was negative. IMPRESSION AND PLAN: This is a 47-year-old female with history of migraine headaches, admitted with altered mental status, slurred speech, right arm and leg weakness, fall, now resolved with comorbidities of hyperlipidemia, admission for hypotension, now resolved on IV fluids and elevated liver function testing of unclear etiology, rule out fatty liver. Case was discussed with the patient, Nursing and co-consultants from Psychiatry, Dr. Denson and Dr. James from Neurology will be to proceed with liver ultrasound. Neurology has ordered lupus anticoagulant, homocysteine, vitamin D levels as well as CRP levels. She was given one dose of dexamethasone 10 mg IV x1 dose this morning. She continues on Ecotrin 81 mg p.o. daily, she will be resumed on dose reduced; Inderal 20 mg p.o. b.i.d., Lipitor 20 mg at dinner time, magnesium oxide 400 mg b.i.d., 0.9 saline at 80 mL/hour and her standing Topamax 100 mg p.o. b.i.d. The patient is ordered to have a 2-D echo with bubble study. Heart-healthy soft bland diet. Neuro checks every shift and ambulation with assistance. Once the patient completes all of the above and is medically cleared by Psychiatry and Neurology, she will follow up with her PMD and neurologist as an outpatient. All of the above was reviewed in detail with the patient and nursing at bedside. All questions were answered. Carin Nelson MD MTDD
[2018-02-19 12:04] VITALS: O2SAT 95
--- NOTE | 2018-02-19 13:10 | CP.PCM.PN ---
Subjective - Date & Time of Evaluation Date of Evaluation: 02/19/18 Time of Evaluation: 13:08 - Subjective Subjective: Ms. Magaña was seen and examined at the bedside. She is alert, oriented in all spheres. She denies any headache, dizziness, lightheadedness, nausea, or weakness. She is able to follow simple commands. She further claims of feeling numbness of her right lower extremity during therapy session, but was resolved when she got back to bed. There was no untoward events overnight. Objective - Vital Signs/Intake and Output Vital Signs (last 24 hours): Temp Pulse Resp BP Pulse Ox 97.9 F 83 20 111/82 95 02/19/18 05:52 02/19/18 10:00 02/19/18 05:52 02/19/18 10:00 02/19/18 10:00 Intake and Output: 02/19/18 02/19/18 06:59 18:59 Intake Total 660 960 Balance 660 960 - Medications Medications: Current Medications Acetaminophen (Tylenol 325mg Tab) 650 mg PO Q6H PRN PRN Reason: Fever >100.4 F or pain Last Admin: 02/19/18 00:26 Dose: 650 mg Aspirin (Ecotrin) 81 mg PO DAILY [facility] Last Admin: 02/19/18 09:51 Dose: 81 mg Atorvastatin Calcium (Lipitor) 20 mg PO DIN [facility] Last Admin: 02/18/18 17:21 Dose: 20 mg Sodium Chloride (Sodium Chloride 0.9%) 1,000 mls @ 80 mls/hr IV .[id number] [facility] Last Admin: 02/19/18 11:38 Dose: 80 mls/hr Magnesium Oxide (Mag-Ox) 400 mg PO BID [facility] Last Admin: 02/19/18 09:52 Dose: 400 mg Propranolol HCl (Inderal) 20 mg PO BID [facility] Last Admin: 02/19/18 09:51 Dose: 20 mg Topiramate (Topamax) 100 mg PO BID [facility] PRN Reason: Protocol Last Admin: 02/19/18 09:51 Dose: 100 mg - Labs Labs: 02/18/18 09:20 PT 11.9 SECONDS (9.4-12.5) 02/16/18 12:52 INR 1.03 (0.93-1.08) 02/16/18 12:52 APTT 28.5 Seconds (25.1-36.5) 02/16/18 12:52 - Constitutional Appears: No Acute Distress - Head Exam Head Exam: NORMAL INSPECTION - Neurological Exam Neurological Exam: Alert, Awake Neuro motor strength exam: Left Upper Extremity: 5, Right Upper Extremity: 5, Left Lower Extremity: 5, Right Lower Extremity: 5 Additional comments: Alert, oriented in all spheres, follows commands, sensation is intact. Assessment and Plan (1) Migraine Assessment & Plan: Case discussed with Dr. Grimes, continue all current medical and physical therapies. Clear from neurology to be discharge and may follow up with Dr. Whipple ( pt. own neurologist) for her migraine. Status: Acute
--- NOTE | 2018-02-19 16:10 | CARD ---
APPROVED REPORT EXAM: Two-dimensional and M-mode echocardiogram with Doppler and color Doppler. INDICATION AMS, BUBBLE STUDY 2D DIMENSIONS Left Atrium (2D)3.4 (1.6-4.0cm)IVSd0.8 (0.7-1.1cm) LVDd3.8 (3.9-5.9cm)PWd0.8 (0.7-1.1cm) LVDs2.5 (2.5-4.0cm)FS (%) 34.9 % LVEF (%)65.0 (>50%) M-Mode DIMENSIONS Aortic Root2.80 (2.2-3.7cm)Aortic Cusp Exc.1.60 (1.5-2.0cm) Aortic Valve AoV Peak Flzuytvx672.0cm/Dolores Peak GR.7mmHg Mitral Valve MV E Afbspgsa08.8cm/sMV A Vvfrmpyu32.5cm/sE/A ratio1.1 TDI Lateral E' Peak V11.00cm/sMedial E' Peak V8.68cm/sE/Lateral E'8.2 E/Medial E'10.3 Pulmonary Valve PV Peak Fojyyfzk18.6cm/sPV Peak Grad.2mmHg Tricuspid Valve TR Peak Jmgxfcgl679bm/sRAP AXOTTRMS70ffJgFE Peak Gr.19mmHg [id number] LEFT VENTRICLE The left ventricle is normal size. There is normal left ventricular wall thickness. The left ventricular function is normal.EF-60-65% There is normal LV segmental wall motion. The left ventricular diastolic function is normal. No left ventricle thrombus noted on this study. There is no ventricular septal defect visualized. There is no left ventricular aneurysm. RIGHT VENTRICLE The right ventricle is normal size. There is normal right ventricular wall thickness. The right ventricular systolic function is normal. ATRIA The left atrium size is normal. The right atrium size is normal. The interatrial septum is intact with no evidence for an atrial septal defect., By Color flow and Bubble study. AORTIC VALVE The aortic valve is normal in structure. There is trace aortic regurgitation. There is no aortic valvular stenosis. There is no aortic valvular vegetation. MITRAL VALVE The mitral valve is normal in structure. Mitral regurgitation is trace. There is no mitral valve stenosis. There is no evidence of mitral valve prolapse. TRICUSPID VALVE The tricuspid valve leaflets are thickened , but open well. There is trace tricuspid regurgitation.RVSP-29 mmof hg. There is no tricuspid valve stenosis. There is no tricuspid valve prolapse or vegetation. PULMONIC VALVE The pulmonary valve is normal in structure. There is no pulmonic valvular regurgitation. There is no pulmonic valvular stenosis. GREAT VESSELS The aortic root is normal in size. The ascending aorta is normal in size. The pulmonary artery is normal. The IVC is normal in size and collapses >50% with inspiration. PERICARDIAL EFFUSION There is no pleural effusion. There is no pericardial effusion. <Conclusion> Normal chamber Size. Ef-60-65% There is trace aortic regurgitation. Mitral regurgitation is trace. There is trace tricuspid regurgitation.RVSP-29 mmof hg. There is no pericardial effusion. The interatrial septum is intact with no evidence for an atrial septal defect., By Color flow and Bubble study. No vegetation or thrombus noted.
[2018-02-19 17:22] VITALS: BP 102/66; PULSE 82; RESP 18; TEMP 97.7
--- NOTE | 2018-02-20 09:13 | CON ---
DATE: IDENTIFYING INFORMATION: The patient is a 47-year-old white female who presented to the [facility] Emergency Room complaining of right facial and upper extremity numbness. At the time of her presentation, she reportedly also exhibited slurred speech, which dissipated. She has also had a history of migraine headaches and had been under the care of Dr. Whipple for this (neurologist). According to the patient, she was in her office, working as a supervisory nurse at the [employer] and started experiencing right-sided facial numbness and slurred speech. This has not been present at the time of initial evaluation by Dr. Nelson. PAST MEDICAL HISTORY: As noted, significant for recurrent migraines. She had no known history of hypertension or any old cerebrovascular events or seizures or multiple sclerosis or any neurologic defects. A CT scan of the head was negative. The patient is a [place] [employer] in [place]. She indicated that she had in her 20s and had remained for about 7 years to a man who left her for another woman after approximately 7 years of marriage. She has a child from that marriage. She has not had any other marriages since that time. She denied a prior psychiatric or substance abuse history. The patient is a graduate of the [employer] [place]. The patient denied a history of substance abuse. She denied familial psychiatric history. I have reviewed her situation both with Nursing and with Dr. Nelson. CBC and differential was essentially within normal limits. The toxicology screen was negative. Urinalysis negative. Biochemical profile show slightly elevated glucose yesterday, but within normal limits today. The patient has been maintained on Inderal for her migraine, Lipitor, Topamax. The etiology of the patient's symptoms are uncertain, but may be related to her migraine. There is no overt psychiatric presentation. I have given her my card in the event that she feels a need for this. DIAGNOSIS: Uncertainly, rule out atypical migraine presentation. Thank you was always for this consultation. Bradley Cuba MD/ PhD
--- NOTE | 2018-02-20 09:31 | DS ---
DATE OF EVALUATION: 02/19/2018 FINAL DIAGNOSES: Facial numbness, resolved; history of migraine headache, hyperlipidemia. DISPOSITION: Home. The patient was advised to follow up with Neurology in 48 hours, her PMD, Dr. Bradley Cuba from Psychiatry as needed. DISCHARGE DIET: Heart-healthy soft bland. DISCHARGE MEDICATIONS: Ecotrin 81 mg p.o. daily, Inderal 20 mg p.o. b.i.d., Lipitor 20 mg p.o. at dinner time, Topamax 100 mg p.o. b.i.d., Maxalt 10 mg p.o. daily p.r.n. migraine headache. SUMMARY: This 47-year-old female presented to [facility] complaining of right-sided facial numbness, slurred speech, right arm numbness and right arm and leg weakness, and was seen in the emergency room and evaluated by Dr. James from Neurology who felt her clinical presentation was not consistent with her radiographic findings. Patient had an unremarkable head CT, brain MRI, head and neck CTA and an abdominal ultrasound consistent with fatty infiltration of the liver and a 2D echocardiogram that was read by Dr. Ahn, diamond sander, which showed trace tricuspid regurgitation, no pericardial effusion, intact interatrial septum with no evidence of a septal defect. No vegetation or thrombus was noted. She had normal chamber size with an ejection fraction of 60% to 65%. Patient's chest x-ray showed no active pulmonary disease. EKG was reviewed and showed normal sinus rhythm with nonspecific ST-T wave changes. At discharge, vital signs were, temperature 97.7, respirations 18, pulse 82 and blood pressure 102/66. White count 8500, hemoglobin 13.3, hematocrit 40 and platelets of 328,000. PT/INR 1.03, PTT 28.5. Sodium 140, K 3.9, chloride 109, bicarb 20, BUN 15, creatinine 0.7, random blood sugar 92. Vitamin B12 level 229. Vitamin D levels less than 12.8. T4 level normal at 7.7. Patient's urine negative; urine drug screen negative and hepatitis A, B, C serology negative. Patient was advised to take vitamin B12 sublingual 1000 mcg p.o. daily, vitamin D of 5000 International Units daily and to follow a heart-healthy soft bland diet and to follow up lab testing with her PMD as an outpatient. Patient was advised of all of the above and hopefully will be compliant with these recommendations. Greater than 35 minutes was spent in the care and discharge management of this patient today. Carin Nelson MD MTDD
== END 2018-02-19 19:30 | disposition home or self-care (01) | DRG 103 ==
LOC: ED 12:24 → ERH 14:58 → 2RNO 18:14
PROVIDERS: ADMIT Internal Medicine; ATTEND Internal Medicine
DX: G43.909 Migraine, unspecified, not intractable, without status migrainosus (principal); E78.5 Hyperlipidemia, unspecified; F43.22 Adjustment disorder with anxiety; I10 Essential (primary) hypertension; K76.0 Fatty (change of) liver, not elsewhere classified; R29.810 Facial weakness; Z79.899 Other long term (current) drug therapy; Z88.0 Allergy status to penicillin; R20.0 Anesthesia of skin